=== PATIENT | male | born 1980 | race Two or more races ===

== ENCOUNTER 2017-08-09 15:47 | Emergency (ER) | payer SELFPAY ==
[~2017-08-09] VITALS: Ht 177.8 cm; Wt 108.9 kg
[2017-08-09 16:05] VITALS: BP 115/59
[2017-08-09] MEDS ORDERED: TETANUS-DIPTH-ACEL PERTUSSIS 0.5ML SYRG IM ONE (17:00)
== END 2017-08-09 16:56 | disposition home or self-care (01) ==
LOC: ER 15:58
DX: S61.210A Laceration without foreign body of right index finger without damage to nail, initial encounter (principal); S51.811A Laceration without foreign body of right forearm, initial encounter; F17.210 Nicotine dependence, cigarettes, uncomplicated; W54.0XXA Bitten by dog, initial encounter; Y93.89 Activity, other specified; Y92.89 Other specified places as the place of occurrence of the external cause; Y99.8 Other external cause status
CPT/HCPCS: 12004; 90471; 90715